=== PATIENT | male | born 1965 | race Caucasian/White ===

== ENCOUNTER 2021-12-11 10:41 | Emergency (ER) | payer OTHER, SELFPAY ==
--- NOTE | ~2021-12-11 | CT_ITS ---
EXAMINATION: CT BRAIN W/O DATE: 12/11/2021 11:22 INDICATION: Syncope. TECHNIQUE: Computed tomography (CT) of the head was performed without intravenous contrast. The dose- length product was 605.33 mGy-cm. Automated exposure control and iterative reconstruction technique w ere employed. COMPARISON: No prior studies for comparison. FINDINGS: Normal brain parenchymal volume for age. Normal mcgraw-white differentiation. No acute intrac ranial hemorrhage, infarction, mass or mass effect. No ventriculomegaly or midline shift. Midline sagittal images demonstrate a normal corpus callosum, c raniovertebral junction and sella turcica. Basilar cisterns are patent. Paranasal sinuses and mastoids are pneumatized. No depressed skull fractures. IMPRESSION: 1. No acute intracranial abnormality. Reviewed, dictated and finalized at location A.
--- NOTE | ~2021-12-11 | XR_ITS ---
EXAMINATION: XR chest 1V portable 12/11/2021 11:24 INDICATION: Shortness of breath. Syncope. PROCEDURE: AP portable chest COMPARISON: 02/25/2013 FINDINGS: The lungs are clear. The cardiomediastinal silhouette is within normal limits. There are no pleural effusions. There is no pneumothorax suspected. IMPRESSION: 1: NO ACUTE CARDIOPULMONARY DISEASE. Reviewed, dictated and finalized at location A.
[2021-12-11 10:57] VITALS: BP 145/90; PULSE 71; RESP 14; TEMP 36.8; O2SAT 99
--- NOTE | 2021-12-11 11:01 | ECG_ITS ---
Measurements Intervals [place] Rate: 70 P: 53 NM: 192 QRS: 25 QRSD: 88 T: -11 QT: 363 QTc: 394 Interpretive Statements SINUS RHYTHM NONSPECIFIC T-WAVE ABNORMALITY BORDERLINE ECG NO PREVIOUS ECG AVAILABLE FOR COMPARISON Electronically Signed On 12-11-2021 14:35:56 CDT by Masood Awan M.D.
[2021-12-11 11:13] LABS: Basophils Absolute Auto 0.03 K/mm3 (0.00-0.10); Basophils Percent Auto 0.4 % (0.0-1.0); Eosinophils Absolute Auto 0.04 K/mm3 (0.02-0.50); Eosinophils Percent Auto 0.5 % (1.0-6.0); Hematocrit 45.4 % (40.0-54.0); Hemoglobin 15.4 g/dL (14.0-18.0); Immature Granulocyte Absolute 0.01 K/mm3 (0.00-0.00); Immature Granulocyte Percent A 0.1 % (0.0-0.0); Lymphocytes Absolute Auto 2.64 K/mm3 (1.10-4.50); Lymphocytes Percent Auto 34.6 % (18.0-42.0); Mean Corpuscular HGB Conc 33.9 g/dL (32.0-36.0); Mean Corpuscular Hemoglobin 30.5 pg (27.0-31.0); Mean Corpuscular Volume 89.9 fL (78.0-102.0); Mean Platelet Volume 12.3 fl (8.7-11.0); Monocytes Percent Auto 9.2 % (2.0-11.0); Neutrophils Absolute Auto 4.2 K/mm3 (1.7-7.2); Neutrophils Percent Auto 55.2 % (50.0-70.0); Platelet Count Result 196 K/mm3 (150-420); Red Blood Count 5.05 M/mm3 (4.70-6.10); Red Cell Distribution Width 13.2 % (11.6-14.4); White Blood Count 7.6 K/mm3 (4.8-10.8)
[2021-12-11 11:28] LABS: Partial Thromboplastin Time 29.3 SEC (23.90-30.70)
[2021-12-11 11:35] LABS: Alanine Aminotransferase 22 U/L (16-63); Alkaline Phosphatase 48 U/L (46-116); Anion Gap 7 mmol/L (8-16); Aspartate Amino Transferase 18 U/L (15-37); Bilirubin,Total 0.6 mg/dL (0.00-1.00); Blood Urea Nitrogen 17 mg/dL (7-18); Calcium 9.3 mg/dL (8.5-10.1); Carbon Dioxide 29 mmol/L (21-32); Chloride 105 mmol/L (98-108); Estimated CRCL calculation 80 ml/min; Estimated Glomerular Filt Rate 58; Glucose 107 mg/dL (70-99); NT Pro B Type Natriuretic Pept 90 pg/mL (0-125); Osmolality Calculated 293 mOsm/kg (285-295); Potassium 4.6 mmol/L (3.5-5.1); Sodium 141 mmol/L (136-145); Total Protein 7.6 g/dL (6.4-8.2); Troponin I 4.8 ng/L (0.00-60.4)
[2021-12-11 11:49] LABS: SARS-CoV-2 RNA PCR Negative (Negative)
--- NOTE | 2021-12-11 12:10 | ED.DIZZY ---
HPI - Dizziness General Chief Complaint: Syncope Stated Complaint: SOB,DIZZY,SYNCOPE WITHIN PAST WEEK Time Seen by Provider: 12/11/21 10:56 History of Present Illness HPI Narrative: Pt complains of light headedness and shortness of breath off and on for the last week. Pt says it maily happens at night and he is pretty sure it's his anxiety but just wants to make sure. Pt started on trazadone last week and fell and struck head but did not lose consciousness. Pt has had an intermittent mild MUSE. Pt denies CP. Related Data Home Medications Medication Instructions Recorded Confirmed allopurinol 200 mg DAILY 12/11/21 12/11/21 amlodipine 5 mg DAILY 12/11/21 12/11/21 lisinopril 40 mg DAILY 12/11/21 12/11/21 rosuvastatin 10 mg DAILY 12/11/21 12/11/21 trazodone 100 mg DAILY 12/11/21 12/11/21 Allergies Allergy/AdvReac Type Severity Reaction Status Date / Time cephalexin [From Keflex] Allergy Unknown Verified 12/11/21 11:06 Review of Systems Review of Systems: All systems reviewed & are unremarkable except as noted in HPI and below Exam Const: General: healthy appearing Nutritional Appearance: well nourished Orientation/consciousness: patient oriented x3 Limitations: no limitations HENMT: Head: contusion right frontal Eyes: Pupils: Equal, round and reactive pupils present EOM: EOMs intact bilaterally Neck: Neck: normal visual inspection, no lymphadenopathy and no meningeal signs Chest: Chest palpation & inspection: normal inspection of the chest Resp: Effort & Inspection: normal respiratory effort Auscultation: clear to auscultation bilaterally Cardio: Rate: regular rate Rhythm: regular rhythm GI: GI Palp: Yes Soft to palpation Auscultation: normal bowel sounds Skin: General skin exam: normal color Rashes: no rashes Wounds: no wounds Neuro: General: patient oriented x3 Cranial nerves: Yes Nystagmus not present Speech: normal speech Extrem: General: normal to inspection Psych: Mental Status: mental status grossly normal Affect: normal affect Attitude: cooperative Course Vital Signs Vital signs: Vital Signs Temperature 98.3 F 12/11/21 10:57 Pulse Rate 71 12/11/21 10:57 Respiratory Rate 14 12/11/21 10:57 Blood Pressure 145/90 H 12/11/21 10:57 Pulse Oximetry 99 12/11/21 10:57 Oxygen Delivery Room Air 12/11/21 10:57 Temperature 98.3 F 12/11/21 10:57 Pulse Rate 70 12/11/21 12:25 Respiratory Rate 12 12/11/21 12:25 Blood Pressure 139/87 12/11/21 12:25 Pulse Oximetry 96 12/11/21 12:25 Oxygen Delivery Room Air 12/11/21 12:25 MDM - Dizziness Lab Data Result diagrams: 12/11/21 11:08 12/11/21 11:08 Labs: Lab Results 12/11/21 12/11/21 12/11/21 Range/Units 11:08 11:08 11:08 WBC 7.6 (4.8-10.8) K/mm3 RBC 5.05 (4.70-6.10) M/mm3 Hgb 15.4 (14.0-18.0) g/dL Hct 45.4 (40.0-54.0) % MCV 89.9 (78.0-102.0) fL MCH 30.5 (27.0-31.0) pg MCHC 33.9 (32.0-36.0) g/dL RDW 13.2 (11.6-14.4) % Plt Count 196 (150-420) K/mm3 MPV 12.3 H (8.7-11.0) fl Immature Gran % (Auto) 0.1 H (0.0-0.0) % Neut % (Auto) 55.2 (50.0-70.0) % Lymph % (Auto) 34.6 (18.0-42.0) % Moore % (Auto) 9.2 (2.0-11.0) % Eos % (Auto) 0.5 L (1.0-6.0) % Baso % (Auto) 0.4 (0.0-1.0) % Lymph # (Auto) 2.64 (1.10-4.50) K/mm3 Moore # (Auto) 0.70 (0.10-0.90) K/mm3 Eos # (Auto) 0.04 (0.02-0.50) K/mm3 Baso # (Auto) 0.03 (0.00-0.10) K/mm3 Abs Immat Gran (auto) 0.01 H (0.00-0.00) K/mm3 Absolute Neuts (auto) 4.2 (1.7-7.2) K/mm3 Absolute Nucleated RBC 0.00 (0.00-0.00) K/mm3 Nucleated RBC % 0.0 (0-0.0) % PT 11.0 (9.50-12.10) Seconds INR 1.0 APTT 29.3 (23.90-30.70) SEC Sodium (136-145) mmol/L Potassium (3.5-5.1) mmol/L Chloride (98-108) mmol/L Carbon Dioxide (21-32) mmol/L Anion Gap (8-16) mmol/L BUN (7-18) mg/dL Creatinine
[2021-12-11 12:25] VITALS: BP 139/87; PULSE 70; RESP 12; O2SAT 96
== END 2021-12-11 12:26 | disposition home or self-care (01) ==
PROVIDERS: Emergency Provider Emergency Medicine; PCP Internal Medicine
DX: F41.9 Anxiety disorder, unspecified (principal); Z20.822 Contact with and (suspected) exposure to COVID-19
CPT/HCPCS: 36415; 70450; 71045; 80053; 83880; 84484; 85025; 85610; 85730; 93005; 99284; C9803; U0003; U0005